=== PATIENT | female | born 1990 | race Caucasian/White ===

== ENCOUNTER 2022-01-06 08:25 | Emergency (ER) | payer MEDICAID, SELFPAY ==
[2022-01-06 09:03] VITALS: BP 120/74; PULSE 100; RESP 16; TEMP 36.6; O2SAT 98; BMI 24.7
--- NOTE | 2022-01-06 09:18 | W.ED.GENADLT ---
HPI - General Adult General: Chief complaint: General Medical Stated complaint: bite on her R foot Time Seen by Provider: 01/06/22 08:29 History of Present Illness: Patient is a 31-year-old female comes to the ED with a insect bite or sting on second toe of right foot. 2 days ago patient felt a sharp sting or bite on second toe of right foot. Pretty soon after bite or sting she had some redness and swelling of her toe. She reports being a little itchy as well. Denies any other symptoms. Associated symptoms: Deny chest pain, dyspnea, headache(s), nausea, rash, palpitations or vomiting Review of Systems Const: Denies: fever(s), chills or fatigue Eyes: Denies: change in vision or eye discomfort ENMT: Denies: throat pain, odynophagia, nasal discharge or nasal congestion Card: Denies: chest pain, palpitations, edema, swelling of feet/ankles, dyspnea on exertion or orthopnea Resp: Denies: dyspnea, productive cough or non-productive cough GI: Denies: abdominal pain, nausea, vomiting, diarrhea, constipation or hematochezia : Denies: flank pain, dysuria or hematuria Musc: Reports: extremity swelling (Second toe on right foot); Denies: neck pain or back pain Skin/Breast: Denies: rash or new lesions Neuro: Denies: headache(s), numbness in extremities or weakness in extremities PFS ED PFSH: Medical History (Updated 01/07/22 @ 07:26 by CHINA Honeycutt) No pertinent family history Surgical History (Updated 01/07/22 @ 07:32 by CHINA Honeycutt) H/O: hysterectomy Physical Exam Const: COMMON NORMALS: no acute distress, patient oriented x3 and alert GENERAL APPEARANCE: cooperative and comfortable HENMT: COMMON NORMALS: normocephalic HEAD & SCALP: normocephalic MOUTH: Normal oral and palatal mucosa present THROAT: posterior oropharynx normal and uvula midline Neck/C-Spine: COMMON NORMALS: supple GENERAL: Yes normal visual inspection Resp: COMMON NORMALS: normal respiratory effort, No retractions, No use of accessory muscles and clear to auscultation bilaterally AUSCULTATION: clear to auscultation bilaterally Cardio: COMMON NORMALS: regular rate, regular rhythm, S1 normal heart sound present, S2 normal heart sound present, No gallops present (Cardio), No clicks present (Cardio), No murmurs present (Cardio) and Peripheral pulses 2+ throughout RATE: regular rate RHYTHM: regular rhythm HEART SOUNDS: S1 normal heart sound present and S2 normal heart sound present PERIPHERAL PULSES: Peripheral pulses 2+ throughout GI: COMMON NORMALS: Normal to inspection, nondistended, normoactive bowel sounds present, Soft to palpation, non-tender and no masses PALPATION: Yes Soft to palpation : COMMON NORMALS: Yes no CVA tenderness BLADDER/KIDNEY EXAM: Yes no CVA tenderness Back/Pelvis: COMMON NORMALS: no CVA tenderness Extremity: NARRATIVE EXTREMITY EXAM: Right foot second toe?small superficial puncture wound on medial aspect of second toe. Some erythema and swelling of toe as well. Findings suggestive of insect sting, but cannot rule out possible developing cellulitis. Neuro: COMMON NORMALS: patient oriented x3 and moves all extremities SENSORIUM/ORIENTATION: Yes alert Skin: GENERAL SKIN EXAM: dry skin Course Vital Signs: Vital signs: Vital Signs Temperature 97.8 F 01/06/22 09:03 Pulse Rate 100 01/06/22 09:03 Respiratory Rate 16 01/06/22 09:03 Blood Pressure 120/74 01/06/22 09:03 Pulse Oximetry 98 01/06/22 09:03 [facility] - General Adult Medical Decision Making Patient is a 31-year-old female comes to the ED with right foot second toe erythema and swelling after insect bite or sting. Patient denies any other symptoms. Vitals are stable. Small superficial puncture wound on medial aspect of second toe. Some erythema and swelling of toe as well. Findings suggestive of insect sting, but cannot rule out possible developing cellulitis. Patient was stable for discharge home. She is diagnosed with a insect bite or sting and was sent home with a prescription for an antibiotic and steroid. Told to follow-up with PCP in the next week for reevaluation. Return to ED precautions given. Patient understood and agreed with plan. Discharge Plan Discharge Patient Disposition: Home Clinical Impression: Insect bite or sting Condition: Stable Prescriptions: New cephalexin 500 mg capsule 500 mg PO Q6H 7 Days Qty: 28 0RF prednisone 20 mg tablet 20 mg PO BID 3 Days Qty: 6 0RF Discharge Orders: Discharge ED (Routine); Ordered 01/06/22 Ordered By: Baldev Levy Discharge Diet: Regular Discharge Activity: Resume usual activity Activity Restrictions/Additional Instructions: Follow-up with medical provider as directed. Take medications as prescribed. Start taking your prednisone prescription tomorrow since she received a steroid shot in the ED today. Return to the ER or your medical provider if condition worsens. Please read and understand discharge instructions. Thank you for choosing [facility] for your healthcare needs today. Please realize this is an emergency room and that we are providing you with a medical screening exam and this may not be complete and all inclusive of all the testing and or work up that you may need to determine your ailment or severity of your illness. It is very important that you follow up as instructed or that you return to the Emergency Department should you have concerns or if your condition changes or worsens in any way. Coding Level of Care Code ED Glass Laminating Operator for Berenice Strauss
== END 2022-01-06 11:41 | disposition home or self-care (01) ==
PROVIDERS: Emergency Provider Physician Assistant
DX: S90.464A Insect bite (nonvenomous), right lesser toe(s), initial encounter (principal); W57.XXXA Bitten or stung by nonvenomous insect and other nonvenomous arthropods, initial encounter
CPT/HCPCS: 96372; 99283; J2930

== ENCOUNTER 2023-01-14 14:29 | Outpatient (CLI) | payer MEDICAID, SELFPAY ==
--- NOTE | 2023-01-14 | XR_ITS ---
WS: [id number] Exam: XR shoulder RT min 2V* [id number] Date/Time of Exam: 01/14/2023 2:53 PM Reason For Exam: PAIN IN RIGHT SHOULDER The projections of the shoulder reveal no fractures, anomalies, soft tissue swelling, or calcificatio ns. There is normal bony alignment. No irregularity of the bony architecture is noted. XR/XR shoulder RT min 2V* [id number] IMPRESSION: Negative right shoulder.
== END 2023-01-14 14:30 | disposition home or self-care (01) ==
LOC: RAD 14:32
PROVIDERS: PCP Family Medicine; Visit Provider Nurse Practitioner Family
DX: M25.511 Pain in right shoulder (principal)
CPT/HCPCS: 73030

== ENCOUNTER → 2023-03-10 08:27 | Outpatient (BNVA) | payer MEDICAID, SELFPAY | PROVIDERS: PCP Family Medicine; Referring Provider Family Medicine; Visit Provider Student in an Organized Health Care Education/Training Program | DX: M75.41 Impingement syndrome of right shoulder | CPT/HCPCS: 73030 ==

== ENCOUNTER 2023-07-23 07:30 | Outpatient (CLI) | payer MEDICAID, SELFPAY ==
--- NOTE | 2023-07-23 07:34 | US_ITS ---
WS: [id number] Complete ABDOMINAL ULTRASOUND HISTORY: NAUSEA COMPARISON: None available. Liver: 15.2 cm in length. Normal size liver and echogenicity. No bile duct dilatation or mass. Portal Vein: Normal hepatopetal flow with monophasic waveform. Gallbladder: Cholecystectomy. CBD: 0.6 cm Pancreas: Normal size and echogenicity. Right kidney: 11.6 cm x 5.0 x 4.1 cm. Cortex: 1.3 cm. Normal size and echogenicity. No hydronephrosis or mass. Left kidney: 9.3 cm x 4.7 cm x 4.3 cm. Cortex: 1.3 cm. Normal size kidney. Exophytic cyst from the inferior pole measures 3.5 x 4.6 x 3.3 cm. Spleen: Normal. Aorta and IVC: Unremarkable abdominal aorta and IVC. Impression: 1. Status post cholecystectomy. 2. No renal obstruction. 3. Simple cyst lower pole LEFT kidney, maximal diameter 4.6 cm.
== END 2023-07-23 07:31 | disposition home or self-care (01) ==
LOC: RAD 07:30
PROVIDERS: PCP Family Medicine; Visit Provider Family Medicine
DX: N28.1 Cyst of kidney, acquired (principal); R11.0 Nausea
CPT/HCPCS: 76700

== ENCOUNTER 2023-08-31 07:43 | Outpatient (CLI) | payer MEDICAID, SELFPAY ==
--- NOTE | 2023-08-31 08:00 | MR_ITS ---
WS: [id number] MRI RIGHT SHOULDER NONCONTRAST TECHNIQUE: Sagittal T2, coronal T1, T2 and proton density imaging. Axial gradient PDE imaging. CLINICAL INFORMATION: right shoulder pain COMPARISON: None. FINDINGS: Mild degenerative arthritis AC joint with mild fluid and edema. Trace subacromial and subdeltoid flui d. Slight subacromial spurring. Supraspinatus is intact. Mild tendinopathy distal supraspinatus. Norm al infraspinatus. Normal teres minor. Normal biceps tendon in the bicipital groove. Glenoid labrum appears grossly intact. Normal bone pati ow signal in the humerus and glenoid. Distal subscapularis appears normal. IMPRESSION: 1. Mild degenerative edema at the AC joint with slight subacromial spurring. Small amount of subacro mial and subdeltoid fluid. 2. Mild tendinopathy distal supraspinatus which appears intact. 3. Rotator cuff is otherwise intact. 4. Normal biceps tendon in the bicipital groove. 5. No other suspicious findings.
== END 2023-08-31 07:44 | disposition home or self-care (01) ==
LOC: RAD 07:43
PROVIDERS: PCP Family Medicine; Visit Provider Physician Assistant
DX: M75.41 Impingement syndrome of right shoulder (principal)
CPT/HCPCS: 73221

== ENCOUNTER 2023-11-24 11:15 | Outpatient (CLI) | payer MEDICAID, SELFPAY ==
--- NOTE | 2023-11-24 11:20 | XRR_ITS ---
PROCEDURE INFORMATION: Exam: XR Cervical Spine Exam date and time: 11/24/2023 11:32 AM Age: 33 years old Clinical indication: Neck pain TECHNIQUE: Imaging protocol: Radiologic exam of the cervical spine. Views: 4 or 5 views. COMPARISON: No relevant prior studies available. FINDINGS: Bones/joints: Normal. No acute fracture. Normal alignment. Normal appearing neural foramina. Soft tissues: Unremarkable. XR/XR cervical spine 4-5V [id number] IMPRESSION: No abnormal findings.
== END 2023-11-24 11:16 | disposition home or self-care (01) ==
LOC: RAD 11:16
PROVIDERS: PCP Family Medicine; Visit Provider Family Medicine
DX: M54.2 Cervicalgia (principal)
CPT/HCPCS: 72050

== ENCOUNTER 2024-02-26 11:39 | Emergency (ER) | payer MEDICAID, SELFPAY ==
[2024-02-26 11:52] VITALS: BP 128/92; PULSE 89; RESP 18; TEMP 36.8; O2SAT 98; BMI 27.4
--- NOTE | 2024-02-26 13:03 | PC.NURSE ---
this nurse assumed pt care at 1303 when pt was brought back to room 2.
[2024-02-26 13:07] VITALS: BP 118/76; PULSE 75; RESP 16; O2SAT 98
--- NOTE | 2024-02-26 13:10 | ED_ITS ---
HPI - Nausea/Vomiting/Diarrhea 2 General: Chief complaint: Nausea/Vomiting/Diarrhea Stated complaint: abd pain, n,v Time Seen by Provider: 02/26/24 12:55 Source: patient Mode of arrival: ambulatory Limitations: no limitations History of Present Illness: Patient is a 33-year-old female presents to ED today with complaint of nausea, vomiting, diarrhea over the past 72 hours. She states she has not had any vomiting today but has already had approximately 5 diarrhea stools. She has not noticed any bloody emesis or bloody stools. She is not running fevers. She states occasionally she will have some abdominal pain. No sick contacts or poor food exposures. Previous abdominal surgeries include a cholecystectomy and appendectomy. She arrives in no acute distress with stable vital signs. Denies urinary symptoms or flank pain. Denies recent antibiotic use. MD elicited complaint: nausea, vomiting and diarrhea Onset (ago): day(s) Associated nausea: Yes Associated abdominal pain: Yes Pain consistency: intermittent Severity: moderate Exacerbating factors: none Relieving factors: none Associated symtoms: Reports fatigue, headache(s) and nausea; Denies chest pain, dizziness, dysuria or malaise Review of Systems 2 Const: Reports: fatigue; Denies: fever(s), chills, body aches or malaise ENMT: Denies: throat pain, odynophagia, nasal discharge, nasal congestion or sinus pain Card: Denies: chest pain Resp: Denies: dyspnea GI: Reports: abdominal pain, nausea, vomiting, diarrhea and GI cramping; Denies: hematemesis, rectal pain, hematochezia or melena : Denies: flank pain, difficulty voiding, dysuria, urinary frequency, urinary urgency or urinary hesitancy Musc: Denies: neck pain, back pain, extremity pain or joint pain Skin/Breast: Denies: rash Neuro: Reports: headache(s); Denies: numbness in extremities, weakness in extremities, sensory changes or dizziness PFSH ED 2 PFSH: Medical History No pertinent family history Surgical History H/O: hysterectomy Physical Exam 2 Const: COMMON NORMALS: no acute distress, average body habitus, patient oriented x3, no limitations, healthy appearing, alert and well nourished G ENERAL APPEARANCE: cooperative ORIENTATION/CONSCIOUSNESS: Yes awake, Yes oriented to person, Yes oriented to place and Yes oriented to time Eye: COMMON NORMALS: no scleral icterus Resp: COMMON NORMALS: normal respiratory effort and clear to auscultation bilaterally AUSCULTATION: clear to auscultation bilaterally Cardio: COMMON NORMALS: regular rate and regular rhythm RATE: regular rate RHYTHM: regular rhythm GI: COMMON NORMALS: Normal to inspection, nondistended, normoactive bowel sounds present, Soft to palpation, No hepatosplenomegaly present and no masses INSPECTION: Yes normal to inspection AUSCULTATION: Yes normoactive bowel sounds PALPATION: Yes Soft to palpation, Yes Tenderness to palpation present (GI) (mild tenderness noted to RLQ, LUQ), No Guarding due to palpation present (GI), No Rigid due to palpation and Yes No hepatosplenomegaly present : COMMON NORMALS: Yes no CVA tenderness BLADDER/KIDNEY EXAM: Yes no CVA tenderness Back/Pelvis: COMMON NORMALS: no CVA tenderness Extremity: GENERAL: Yes normal exam except as noted Neuro: KODY COMA SCALE: document GCS findings [place] coma scale eye opening: Spontaneous [place] coma scale verbal response: Orientated [place] coma scale motor response: Obey commands Kody coma scale total score: 15 COMMON NORMALS: patient oriented x3 SENSORIUM/ORIENTATION: Yes alert, Yes oriented to person, Yes oriented to place and Yes oriented to time Skin: COMMON NORMALS: no rashes or lesions noted GENERAL SKIN EXAM: no rashes or lesions noted Course 2 Vital Signs: Vital signs: Vital Signs Temperature 98.3 F 02/26/24 11:52 Pulse Rate 75 02/26/24 13:07 Respiratory Rate 16 02/26/24 13:07 Blood Pressure 118/76 02/26/24 13:07 Pulse Oximetry 98 02/26/24 13:07 Oxygen Delivery Me thod Room Air 02/26/24 13:07 MDM - Nausea/Vomiting/Diarrhea Medical Decision Making Patient appears in no acute distress. She has not had any vomiting or diarrhea while here. Her vital signs are completely normal. Her blood work here is completely unremarkable. Mild dehydration noted on her UA. She was given a liter of fluids. I do not feel emergent CT imaging is indicated. Abdominal exam was nonsurgical. Recommend conservative therapies over the weekend and follow-up with primary care early next week if symptoms persist. Return to ED precautions given. Medical Records I reviewed the patient's medical records. Lab Data I reviewed the patient's lab results. 02/26/24 13:14 02/26/24 13:14 Laboratory Results WBC 9.67 10^3/uL (3.29-11.43) 02/26/24 13:14 RBC 5.52 10^6/uL (3.85-5.65) 02/26/24 13:14 Hgb 15.60 g/dL (11.27-16.99) 02/26/24 13:14 Hct 47.7 % (36-47) H 02/26/24 13:14 MCV 86.4 fl (85-98) 02/26/24 13:14 MCH 28.3 pg (27-33) 02/26/24 13:14 MCHC 32.7 g/dL (30-55) 02/26/24 13:14 RDW 12.5 % (12.1-15.1) 02/26/24 13:14 Plt Count 288 10^3/cmm (157-399) 02/26/24 13:14 MPV 9.8 fL (7.4-10.4) 02/26/24 13:14 Neut % (Auto) 61.9 % 02/26/24 13:14 Lymph % (Auto) 31.2 % 02/26/24 13:14 [place] % (Auto) 4.8 % 02/26/24 13:14 Eos % (Auto) 1.4 % 02/26/24 13:14 Baso % (Auto) 0.3 % 02/26/24 13:14 Neut # (Auto) 5.98 10^3/uL (1.8-7.7) 02/26/24 13:14 Lymph # (Auto) 3.0 10^3/uL (0.8-4.8) 02/26/24 13:14 [place] # (Auto) 0.5 10^3/uL (0.2-0.9) 02/26/24 13:14 Eos # (Auto) 0.1 10^3/uL (0.0-0.8) 02/26/24 13:14 Baso # (Auto) 0.0 10^3/uL (0.0-0.1) 02/26/24 13:14 Nucleated RBC % (auto) 0 % 02/26/24 13:14 Nucleated RBCs # 0.0 /100WBC 02/26/24 13:14 Sodium 139 mmol/L (136-145) 02/26/24 13:14 Potassium 4.1 mmol/L (3.5-5.1) 02/26/24 13:14 Chloride 103 mmol/L (98-107) 02/26/24 13:14 Carbon Dioxide 23 mmol/L (22-29) 02/26/24 13:14 Anion Gap 17.1 (5-19) 02/26/24 13:14 BUN 12 mg/dL (6-20) 02/26/24 13:14 Creatinine 0.6 mg/dL (0.5-0.9) 02/26/24 13:14 GFR Calculation 114.4 mL/min (90-130) 02/26/24 13:14 Glucose 89 mg/dL (65-115) 02/26/24 13:14 Calculated Osmolality 287 mOsm/kg (285-295) 02/26/24 13:14 Calcium 9.3 mg/dL (8.5-10.5) 02/26/24 13:14 Total Bilirubin 0.6 mg/dL (0.15-1.2) 02/26/24 13:14 AST 17 U/L (0-32) 02/26/24 13:14 ALT 21 U/L (0-33) 02/26/24 13:14 Alkaline Phosphatase 71 U/L (35-105) 02/26/24 13:14 Total Protein 7.0 g/dL (6.6-8.7) 02/26/24 13:14 Albumin 4.7 g/dL (3.5-5.2) 02/26/24 13:14 Globulin 2.3 g/dL (1.3-4.6) 02/26/24 13:14 Lipase 23 U/L (13-60) 02/26/24 13:14 HCG, Qual Negative (Negative) 02/26/24 13:14 Urine Color Yellow (Yellow) 02/26/24 13:57 Urine Appearance Clear (CLEAR) 02/26/24 13:57 Urine pH 5.5 (5-7) 02/26/24 13:57 Ur Specific [place] 1.025 (1.005-1.030) 02/26/24 13:57 Urine Protein Trace (Negative) A 02/26/24 13:57 Urine Glucose (UA) Negative (Normal) 02/26/24 13:57 Urine Ketones 2+ (Negative) H 02/26/24 13:57 Urine Blood Negative (Negative) 02/26/24 13:57 Urine Nitrate Negative (Negative) 02/26/24 13:57 Urine Bilirubin Negative (Negative) 02/26/24 13:57 Urine Urobilinogen 1.0 mg/dL (Negative) 02/26/24 13:57 Ur Leukocyte Esterase Negative (Negative) 02/26/24 13:57 Urine RBC 3-5 /hpf (0-2) 02/26/24 13:57 Urine WBC 0-5 /hpf (0-5) 02/26/24 13:57 Ur Squamous Epith Cells 0-5 /hpf (0-5) 02/26/24 13:57 Amorphous Sediment Not Reportable 02/26/24 13:57 Urine Bacteria None seen /hpf (NONE) 02/26/24 13:57 Hyaline Casts 1.21 /lpf 02/26/24 13:57 No radiology studies performed this visit Discharge Plan Discharge Patient Disposition: Home Clinical Impression: Nausea, vomiting, and diarrhea Condition: Stable Prescriptions: No Action montelukast 10 mg tablet 10 mg PO DAILY cyclobenzaprine 5 mg tablet 5 mg PO TID PRN (Reason: PAIN/MUSCLE SPASMS) Discharge Orders: Discharge ED (Routine); Ordered 02/26/24 Ordered By: Beth Horta Referrals: Floresita Velazquez DO [Primary Care Provider] - Activity Restrictions/Additional Instructions: As we discussed you may do a bland liquid diet and slowly advance as tolerated. You may use your nausea medications that you mentioned you have at home as needed/directed. As we discussed you need to return to the emergency department for worsening vomiting or diarrhea, severe abdominal pain, blood in your vomit or stools, fevers greater than 100.4, generally feeling worse or unwell, or any other concerns you may have. Otherwise you can follow-up with primary care early next week if symptoms are not improving. I hope you begin to feel better soon. Coding Level of Care Code ED Material Control Manager for Berenice Strauss
[2024-02-26 13:21] LABS: Basophils % 0.3 %; Eosinophils # 0.1 10^3/uL (0.0-0.8); Eosinophils % 1.4 %; Hematocrit 47.7 % (36-47); Lymphocytes % 31.2 %; Mean Corpuscular HGB Conc 32.7 g/dL (30-55); Mean Corpuscular Hemoglobin 28.3 pg (27-33); Mean Corpuscular Volume 86.4 fl (85-98); Mean Platelet Volume 9.8 fL (7.4-10.4); Monocytes # 0.5 10^3/uL (0.2-0.9); Monocytes % 4.8 %; Neutrophils # 5.98 10^3/uL (1.8-7.7); Neutrophils % 61.9 %; Nucleated Red Blood Cells % 0 %; Platelet Count 288 10^3/cmm (157-399); Red Blood Count 5.52 10^6/uL (3.85-5.65); Red Cell Distribution Width 12.5 % (12.1-15.1); White Blood Count 9.67 10^3/uL (3.29-11.43)
[2024-02-26] MEDS: sodium chloride 0.9% 1,000 ML 999 ML IV (13:22)
[2024-02-26] MEDS: ondansetron 2 mg/ML SDV 2 mL 4 MG IVP (13:22)
[2024-02-26 13:38] LABS: Alanine Aminotransferase 21 U/L (0-33); Albumin Level 4.7 g/dL (3.5-5.2); Alkaline Phosphatase 71 U/L (35-105); Anion Gap 17.1 (5-19); Aspartate Amino Transferase 17 U/L (0-32); Blood Urea Nitrogen 12 mg/dL (6-20); Calcium 9.3 mg/dL (8.5-10.5); Carbon Dioxide 23 mmol/L (22-29); Chloride 103 mmol/L (98-107); Creatinine Clr Calc Pharmacy 119.4567; Globulin 2.3 g/dL (1.3-4.6); Glomerular Filtration Rate 114.4 mL/min (90-130); Glucose 89 mg/dL (65-115); Lipase 23 U/L (13-60); Osmolality Calculated 287 mOsm/kg (285-295); Potassium 4.1 mmol/L (3.5-5.1); Sodium 139 mmol/L (136-145); Total Bilirubin 0.6 mg/dL (0.15-1.2)
[2024-02-26 13:39] LABS: HCG, Serum Qual Negative (Negative)
[2024-02-26 14:06] LABS: Charge for UA Resulting for Rev
[2024-02-26 14:08] LABS: Bilirubin Urine Negative (Negative); Blood Urine Negative (Negative); Glucose Urine UA Negative (Normal); Ketones Urine 2+ (Negative); Leukocyte Esterase Urine Negative (Negative); Nitrate Urine Negative (Negative); Protein Urine Trace (Negative); Specific Gravity, Urine 1.025 (1.005-1.030); Urine Appearance Clear (CLEAR); Urine Color Yellow (Yellow); pH Urine 5.5 (5-7)
[2024-02-26 14:10] LABS: Bacteria Urine None Seen /hpf; Hyaline Casts Urine 1.21 /lpf; Squamous Epithelial Cell Urine 0-5 /hpf (0-5); WBC Urine 0-5 /hpf (0-5)
[2024-02-26 14:58] VITALS: BP 113/73; PULSE 75; RESP 17; O2SAT 98
[2024-02-26 15:45] LABS: Adenovirus Not Detected (NOT DETECT); Chlamydia Pneumoniae Not Detected (NOT DETECT); Coronavirus 229E,HKU1,NL63,OC4 Not Detected (NOT DETECT); Human Metapneumovirus Not Detected (NOT DETECT); Human Rhinovirus/Enterovirus Not Detected (NOT DETECT); Influenza A Not Detected (NOT DETECT); Influenza A H1 Not Detected (NOT DETECT); Influenza A H1-2009 Not Detected (NOT DETECT); Influenza A H3 Not Detected (NOT DETECT); Influenza B Not Detected (NOT DETECT); Mycoplasma Pneumoniae Not Detected (NOT DETECT); Parainfluenza Virus Type 1 Not Detected (NOT DETECT); Parainfluenza Virus Type 2 Not Detected (NOT DETECT); Parainfluenza Virus Type 3 Not Detected (NOT DETECT); Parainfluenza Virus Type 4 Not Detected (NOT DETECT); Respiratory Syncytial Virus A Not Detected (NOT DETECT); Respiratory Syncytial Virus B Not Detected (NOT DETECT); SARS-COV-2 Not Detected (NOT DETECT)
== END 2024-02-26 15:00 | disposition home or self-care (01) ==
PROVIDERS: Emergency Provider Physician Assistant; PCP Family Medicine
DX: R11.2 Nausea with vomiting, unspecified (principal); R19.7 Diarrhea, unspecified; E86.0 Dehydration
CPT/HCPCS: 80053; 81003; 81015; 83690; 84703; 85025; 87635; 96374; 99284; J2405; J7030

== ENCOUNTER 2024-04-13 09:52 | Day surgery (SDC) | payer MEDICAID, SELFPAY ==
[2024-04-13] VITALS (12 sets, daily range): BP systolic 106–125; BP diastolic 67–90; PULSE 65–98; RESP 14–18; TEMP 36.1–36.8; O2SAT 93–100; BMI 27.4
[2024-04-13] MEDS: sodium chloride 0.9% 1,000 ML 30 ML IV (11:04)
[2024-04-13] MEDS: scopolamine 1.5 Patch 1 PATCH TRANSDERMA (11:04)
[2024-04-13] MEDS: acetaminophen 1,000 MG/100 ML PIGGYBACK 400 MG IV (11:05)
[2024-04-13] MEDS: ketorolac 30 mg/mL INJ IVP (11:05)
--- NOTE | 2024-04-13 11:33 | P.ANESASSM_ITS ---
Pre-Anesthetic Assessment Height/Weight: Height 1.57 m Weight 68.039 kg Temp Pulse Resp BP Pulse Ox O2 Del Method 98.3 F 79 16 115/76 97 Room Air 04/13/24 10:20 04/13/24 10:20 04/13/24 10:20 04/13/24 10:20 04/13/24 10:20 04/13/24 10:28 Operation Date: 04/13/24 13:15 Proposed Procedures p Shoulder Arthroscopy(Right) - Han Lancaster, DO s Subacromial Decompression(Right) - Han Lancaster, DO s rotator cuff debridement(Right) - Han Cam, DO Familial anesthetic complications: None Was Beta Iveth taken within 24 hours: N/A Was Clonidine taken within 24 hours: N/A Last intake: Intake Last Liquid Date 04/12/24 Last Liquid Time 22:00 Last Solid Date 04/12/24 Last Solid Time 21:00 Social Tobacco and No alcohol Exam alert, oriented x 3, clear to auscultation bilaterally and regular rate & rhythm Airway Mallampati: Class I Dentition: false Pulmonary Asthma Anesthetic Plan ASA status: 2 Anesthesia: General and Regional (specify below) Risk of > 500 ml blood loss (7ml/kg in children): No Medications/Allergies Home Medications Medication Instructions Recorded Confirmed Last Taken Type montelukast 10 mg tablet 10 mg PO DAILY 02/26/24 04/12/24 03/29/24 History hydrocodone 5 mg-acetaminophen 325 1 tab PO Q6H PRN pain 5 days #20 04/13/24 Unknown Rx mg tablet tabs Allergies Allergy/AdvReac Type Severity Reaction Status Date / Time No Known Allergies Allergy Verified 03/01/24 15:30 Current Medications Generic Name Dose Route Start Last Admin Trade Name Freq PRN Reason Stop Dose Admin Sodium Chloride 1,000 mls @ 30 mls/hr 04/13/24 10:00 04/13/24 11:04 Sodium Chloride 0.9% IV 04/14/24 09:59 30 mls/hr .Q24H NICA Administration PFSH Anesthesia Medical History (Updated 03/05/24 @ 00:01 by LILIAM Swanson) No pertinent family history Surgical History (Updated 04/13/24 @ 10:12 by Uday Chua RN) H/O: hysterectomy Social History Smoking and tobacco/nicotine status: current every day tobacco/nicotine user Data Anesthesia Cardiac Studies: No Data to Display
--- NOTE | 2024-04-13 12:15 | W.PM.OPSFHP ---
Same Day Surgery H&P Indication for Procedure/HPI DATE OF PROCEDURE: April 13, 2024 CHIEF COMPLAINT/INDICATIONFOR SURGICAL PROCEDURE: Right shoulder subacromial impingement, rotator cuff tendinitis PREOP DIAGNOSIS: Right shoulder subacromial impingement, rotator cuff tendinitis PLANNED PROCEDURE: Operation Date: 04/13/24 13:15 Proposed Procedures p Shoulder Arthroscopy(Right) - Han Levy, s Subacromial Decompression(Right) - Han Levy, DO s rotator cuff debridement(Right) - Han Levy, DO Medications/Allergies* Home Medications Medication Instructions Recorded Confirmed Type montelukast 10 mg tablet 10 mg PO DAILY 02/26/24 04/12/24 History Allergies/Adverse Reactions Allergy/AdvReac Type Severity Reaction Status Date / Time No Known Allergies Allergy Verified 03/01/24 15:30 Current Medications: Generic Name Dose Route Start Last Admin Trade Name Freq PRN Reason Stop Dose Admin Sodium Chloride 1,000 mls @ 30 mls/hr 04/13/24 10:00 04/13/24 11:04 Sodium Chloride 0.9% IV 04/14/24 09:59 30 mls/hr .Q24H NICA Administration Pertinent History/Comorbid Conditions* Medical History (Updated 03/05/24 @ 00:01 by LILIAM Swanson) No pertinent family history Surgical History (Updated 01/07/22 @ 07:32 by CHINA Honeycutt) H/O: hysterectomy Social History Smoking and tobacco/nicotine status: current every day tobacco/nicotine user Pertinent Exam Findings alert, oriented x 3, operative site marked and procedure specific exam findings Please refer to detailed orthopedic examination on 03/01/2024 listed below: Right shoulder There is some tenderness over the trapezius muscle on the right, minimal AC joint tenderness and biceps tendon. Exam of both upper extremities shows no pain on range of motion of the elbows wrists or hands. There is full range of motion of these joints. the right shoulder shows pain on range of motion, primarily abduction as well as forward flexion. There is pain on abduction against resistance, pain over the leading edge of the acromion. positive O'briens test. There is full internal and external rotation with 5/5 strength noted with the elbows at the side. Decreased active range of motion, but full passive ROM 180 Positive Jung' impingement Pain with Jobes 5/5 Recommendations Surgery/Procedure today Other Plans: Plan for surgery today for right shoulder diagnostic and surgical arthroscopy with subacromial decompression and possible rotator cuff debridement. Patient understands the ins and outs of procedure the risk benefits complication alternatives of surgery and through shared decision-making elects to proceed with surgical intervention. All questions have been answered at this time. Coding Level of Care Code Acute Code for Chg Fwd
[2024-04-13] MEDS: midazolam 1 mg/mL INJ 2 mL 2 MG IVP (12:34)
--- NOTE | 2024-04-13 12:34 | SUR.PREOP ---
Addendum entered by Uday Chua RN 04/13/24 12:39: PT TOLERATED PROCEDURE WELL. Original Note: 12:20 PLACED ON MONITOR AND O2 . RIGHT INTERSCALENE NERVE BLOCK PERFORMED BY DOCTOR Gray , USING 20ml OF 0.5% ROPIVACAINE. p
--- NOTE | 2024-04-13 12:36 | ANES.PROC ---
Anesthesia Procedures Procedure/Date: 04/13/24 Nerve Block ^: Nerve Block 1: Main Anesthesia: general anesthesia Time Out Performed: Yes Consent: requested by attending/covering physician, from patient, from other, risks and benefits reviewed and patient agrees to proceed Nerve block location: interscalene (R) Anesthesia monitors applied: pulse oximetry, EKG, BP cuff and oxygen Nerve block position: semi sitting Anesthetic Used: ropivicaine 0.5% (20 ml) and with decadron (4 mg) Ultrasound used to: recognize landmarks, visualize and ID brachial plexus, in supraclavicular region and visualize and ID interscalene groove Nerve Stimulator Used?: No Interscalene/Femoral BLK: 2 stimuplex 22 g needle used for position and inplane approach, visualize local anesthetic spread and no vascular puncture identified Injection: neg aspiration of heme Patient Tolerated Procedure: well Complications: none
[2024-04-13] MEDS: ceFAZolin 2,000 MG in sodium chloride 0.9% (plus) 50 ML 100 MG IV (14:09)
[2024-04-13] MEDS: EPINEPHrine 1 mg/mL INJ 2 MG XX (14:48)
--- NOTE | 2024-04-13 15:15 | P.BOP_ITS ---
Date of Procedure: 04/13/2024 Surgeon: Han Levy DO Casting Machine Service Operator(s): None Procedure(s) performed: Right shoulder diagnostic and surgical arthroscopy with subacromial decompression (bursectomy/acromioplasty) Right shoulder diagnostic and surgical arthroscopy with rotator cuff debridement Right shoulder diagnostic and surgical arthroscopy with labral debridement Findings of the procedure(s): Patient underwent right shoulder diagnostic and surgical arthroscopy Toller procedure well without issues or complications. She was found to have significant bursitis and subacromial impingement and had this addressed as stated procedure above. The undersurface of her rotator cuff did have some subtle fraying and as a result just underwent gentle debridement as this articular sided fraying/tearing was only less than 10% of the rotator cuff. Patient on the posterior and superior aspect of the labrum had some subtle fraying but no evidence of labral instability or tear this was just gently debrided without issues or complications. Patient tolerated procedure well without issues or complications patient was then taken to PACU in stable condition. Estimated blood loss: 5 mL Specimen(s) removed: None Post-operative diagnosis: Right shoulder subacromial impingement, partial articular sided rotator cuff tearing less than 10%, partial fraying of the posterior superior aspect of the labrum.
--- NOTE | 2024-04-13 15:17 | P.OP_ITS ---
Operative Report Date of procedure: April 13, 2024 Surgeon: Han Levy DO Procedure: Preoperative diagnosis: Right shoulder subacromial impingement, rotator cuff tendinitis Post-op diagnosis: Right shoulder subacromial impingement, partial articular sided rotator cuff tearing less than 10%, partial fraying of the posterior superior aspect of the labrum. Procedure done: Right shoulder diagnostic and surgical arthroscopy with subacromial decompression (bursectomy/acromioplasty) Right shoulder diagnostic and surgical arthroscopy with rotator cuff debridement Right shoulder diagnostic and surgical arthroscopy with labral debridement Surgeon: Han Levy DO Estimated blood loss: 5mL IV fluids: See anesthesia record Implants: None Complications: None Condition: stable Disposition: same day Brief History: Patient been seen and worked up in the outpatient setting for right?shoulder pain.? Pt had an MRI which showed findings below.? Patient's failed conservative treatment with continued pain.? We talked about treatment options far as nonoperative and operative intervention..? We talked about risk benefits complication alternatives surgical nonsurgical treatment options.? Understanding risk of surgery pt agrees to proceed with surgical intervention.? All questions have been answered at this time.? Patient elects proceed with surgery and consent obtained for right shoulder diagnostic and surgical arthroscopy with subacromial decompression and possible rotator cuff debridement IMPRESSION: 1. Mild degenerative edema at the AC joint with slight subacromial spurring. Small amount of subacromial and subdeltoid fluid. 2. Mild tendinopathy distal supraspinatus which appears intact. 3. Rotator cuff is otherwise intact. 4. Normal biceps tendon in the bicipital groove. 5. No other suspicious findings. Procedure: Patient seen evaluated in the preoperative holding area.? Consent reviewed and signed with patient.? Once again reviewed patient's MRI results as well as? planned surgical intervention.? Correct extremity marked.? Patient seen evaluated by anesthesia department received regional anesthesia.? Once ready for surgery was taken back to the operative suite.? Patient then subsequently underwent anesthesia per the anesthesia department was transported onto the OR table.? Patient was then placed into a lateral decubitus position with a beanbag and was appropriately secured to the bed.? All bony prominences well-padded.? Patient then had the right upper extremity was then prepped and draped in standard orthopedic fashion.? Patient received appropriate preoperative antibiotics.? Final timeout performed. The right upper extremity was then held in hanging from traction utilizing sterile technique.? Next started with standard diagnostic and surgical arthroscopy with posterior portal position introduced arthroscope into the glenohumeral joint.? Visualized the glenohumeral joint I then introduced a spinal needle within the?rotator cuff interval to confirm appropriate anterior portal placement.? Once this was confirmed I then made my small incision and then introduced my arthroscopic shaver into the glenohumeral joint.? After thorough debridement diagnostic and surgical arthroscopy was then performed of the shoulder. Patient's bicep labral anchor was intact there is no evidence of bicep tendon tearing this was subsequent left alone the anterior labrum was intact as well as the inferior labrum. Next I evaluated the subscapularis tendon which was intact and no evidence of tear. ?Next there was tearing of the superficial edges of the posterior labrum I subsequently underwent a gentle debridement and thermal wand to perform a posterior labral debridement there was no evidence of unstable labral tearing.? Patient was found to have pristine articular cartilage no evidence of chondromalacia. The axillary recess was then inspected and found to have no evidence of loose bodies. I then looked superiorly and patient had a small roughly 10% partial tearing on the articular side of the undersurface of the supraspinatus rotator cuff tendon there was a negative escape bubble sign I gently utilized the arthroscopic shaver to perform a gentle debridement of the undersurface of the rotator cuff. There is no evidence of full-thickness rotator cuff tear as a result no evidence or need for any rotator cuff repairs. This completed my work within the glenohumeral joint all fluid was suctioned free of the joint.? ?Next I reintroduced the arthroscope posteriorly.? And went to the subacromial space.? I established my lateral working portal at the site of which my spinal needle was marking of the?rotator cuff tear.? Thermal wand was then introduced laterally and then I subsequently performed extensive bursectomy of the subacromial space.? Patient had a large anterior bone spur.? I then introduced the arthroscopic shaver laterally while continuing to view posteriorly.? I then performed an acromioplasty to complete my subacromial decompression. After the subacromial decompression was performed I then inspected the rotator cuff the rotator cuff was pristine and intact with no evidence of a bursal sided tearing this was taken through range of motion and thoroughly inspected and no evidence of rotator cuff tear was noted. This completed the procedure. ?Next I then introduced the arthroscopic shaver posteriorly to complete my subac romial decompression appropriate complaining all the way up to the lateral edge of the acromion.? This completed the surgery.? All fluid was suctioned from the?shoulder.? All instruments were removed.? The lateral incision was then closed with nylon stitches.? As well as the portal sites closed with portal nylon stitches.? Xeroform 4 x 4's ABD and tape was then applied to the right?shoulder and was placed into a?simple sling. Patient was then awakened from anesthesia and then taken back to PACU in stable condition.? Patient tolerated procedure without any issues. Disposition: Patient taken back in stable condition recovering well.? Dressings on in place clean dry and intact.? Will be nonweightbearing to the right upper extremity.? Follow?subacromial decompression protocol. patient to follow-up with me in the office in 2 weeks.? Patient will receive appropriate discharge instruction as well as pain medication postoperatively.? All questions answered.? We will contact the office for any questions or concerns.
--- NOTE | 2024-04-13 16:20 | SUR.PHASEII ---
16:20 PT SHIVERING. WARM INDIRECT AIR AND BLANKETS. GOOD CAP REFILL SENSATION AND ROM RIGHT HAND FINGERS PRESENT.
--- NOTE | 2024-04-13 17:10 | ANE.PACU2 ---
Inpatient post-anesthesia follow up: Airway intact: Yes Vital signs: Temperature 97.6 F Pulse Rate 75 Respiratory Rate 16 Blood Pressure 117/68 Pulse Oximetry 98 Oxygen Delivery Me thod Room Air Oxygen Flow Rate Fraction of Inspir ed Oxygen Hydration adequate: Yes Nausea and vomiting: No Pain level: 1 Mental status: Baseline
== END 2024-04-13 17:10 | disposition home or self-care (01) ==
PROVIDERS: PCP Family Medicine; Visit Provider Student in an Organized Health Care Education/Training Program
PROC: (CPT 29805; principal; 2024-04-13 13:15)
PROC: (CPT 29826; 2024-04-13 13:15)
PROC: (CPT 29823; 2024-04-13 13:15)
PROC: (CPT 29823; 2024-04-13 13:15)
DX: M25.811 Other specified joint disorders, right shoulder (principal); M75.101 Unspecified rotator cuff tear or rupture of right shoulder, not specified as traumatic; J45.909 Unspecified asthma, uncomplicated; F17.200 Nicotine dependence, unspecified, uncomplicated
CPT/HCPCS: 29823; 29826; J0131; J0171; J0690; J1100; J1885; J2250; J2704; J2795; J3010; J3490; J7030

== ENCOUNTER 2024-09-05 09:32 | Outpatient (CLI) | payer MEDICAID, SELFPAY ==
--- NOTE | 2024-09-05 09:46 | XR_ITS ---
WS: [id number] Exam: XR abdomen 1V* [id number] Date/Time of Exam: 09/05/2024 9:59 AM Reason For Exam: ABDOMINAL BLOATING, DIARRHEA, UNSPECIFIED No bowel obstruction or pneumoperitoneum. No sign of organ enlargement. Bony structures are intact. Multiple pelvic calcifications noted most likely phleboliths. Signs of prior cholecystectomy. XR/XR abdomen 1V* [id number] IMPRESSION: 1. No acute abdominal process.
[2024-09-05 12:13] LABS: Adenovirus Not Detected (NOT DETECT); Chlamydia Pneumoniae Not Detected (NOT DETECT); Coronavirus 229E,HKU1,NL63,OC4 Not Detected (NOT DETECT); Human Metapneumovirus Not Detected (NOT DETECT); Human Rhinovirus/Enterovirus Not Detected (NOT DETECT); Influenza A Not Detected (NOT DETECT); Influenza A H1 Not Detected (NOT DETECT); Influenza A H1-2009 Not Detected (NOT DETECT); Influenza A H3 Not Detected (NOT DETECT); Influenza B Not Detected (NOT DETECT); Mycoplasma Pneumoniae Not Detected (NOT DETECT); Parainfluenza Virus Type 1 Not Detected (NOT DETECT); Parainfluenza Virus Type 2 Not Detected (NOT DETECT); Parainfluenza Virus Type 3 Not Detected (NOT DETECT); Parainfluenza Virus Type 4 Not Detected (NOT DETECT); Respiratory Syncytial Virus A Not Detected (NOT DETECT); Respiratory Syncytial Virus B Not Detected (NOT DETECT); SARS-COV-2 Not Detected (NOT DETECT)
== END 2024-09-05 09:33 | disposition home or self-care (01) ==
LOC: LAB 09:41
PROVIDERS: PCP Family Medicine; Visit Provider Nurse Practitioner Family
DX: R14.0 Abdominal distension (gaseous) (principal); R19.7 Diarrhea, unspecified; J06.9 Acute upper respiratory infection, unspecified; R93.89 Abnormal findings on diagnostic imaging of other specified body structures; Z90.49 Acquired absence of other specified parts of digestive tract
CPT/HCPCS: 74018; 87486; 87581; 87633

== ENCOUNTER 2024-10-14 10:22 | Outpatient (CLI) | payer MEDICAID, SELFPAY ==
--- NOTE | 2024-10-14 10:24 | US_ITS ---
WS: [id number] Complete ABDOMINAL ULTRASOUND HISTORY: ABDOMINAL BLOATING COMPARISON: 07/23/2023 Liver: 17.0 cm in length. Liver is top normal size to slightly enlarged. No intrahepatic mass or biliary dilatation. Portal Vein: Normal hepatopetal flow with monophasic waveform. Gallbladder: Prior cholecystectomy. CBD: 0.3 cm Pancreas: Normal size and echogenicity. Right kidney: 11.7 cm x 4.8 x 3.7 cm. Cortex:1.0 cm. Normal size and echogenicity. No hydronephrosis or mass. Left kidney: 11.9 cm x 4.2 cm x 4.8 cm. Cortex: 1.3 cm. Normal size kidney with no hydronephrosis. Low-attenuation mass from the lower pole the LEFT kidney measures 3.2 x 3.1 x 3.5 cm. There are low-level echoes within the mass but there is also through transmission. This mass was noted on a prior ultrasound and decreased in size. Favor this is probably a complex cyst. Spleen: 11.5 cm. Normal size and echogenicity. Aorta and IVC: Unremarkable abdominal aorta and IVC. US/US abdomen complete* [id number] Impression: 1. Prior cholecystectomy. 2. No intrahepatic duct dilatation. 3. Liver is measuring top normal to slightly enlarged in size. 4. Hypoechoic mass lower pole LEFT kidney as decreased in size since 07/23/2023. Consistent with a complex cyst.
== END 2024-10-14 10:23 | disposition home or self-care (01) ==
PROVIDERS: PCP Family Medicine; Visit Provider Family Medicine
DX: R14.0 Abdominal distension (gaseous) (principal); Z90.49 Acquired absence of other specified parts of digestive tract; R93.2 Abnormal findings on diagnostic imaging of liver and biliary tract; N28.89 Other specified disorders of kidney and ureter
CPT/HCPCS: 76700

== ENCOUNTER 2024-10-28 14:00 | Outpatient (CLI) | payer MEDICAID, SELFPAY ==
--- NOTE | 2024-10-28 14:05 | CTR_ITS ---
PROCEDURE INFORMATION: Exam: CT Abdomen And Pelvis With Contrast Exam date and time: 10/28/2024 2:48 PM Age: 34 years old Clinical indication: Bloating and constipation; Additional info: Abdominal bloating/lower abdominal pain TECHNIQUE: Imaging protocol: Computed tomography of the abdomen and pelvis with contrast. Axial, coronal and sagittal reformatted images were created and reviewed. Radiation optimization: All CT scans at this facility use at least one of these dose optimization techniques: automated exposure control; mA and/or kV adjustment per patient size (includes targeted exams where dose is matched to clinical indication); or iterative reconstruction. Contrast material: OMNI 350; Contrast volume: 100 ml; Contrast route: INTRAVENOUS (IV); COMPARISON: CR XR abdomen 1V* [id number] 09/05/2024 10:03 AM RADIATION DOSE METRICS: Total DLP (mGy-cm): 371.43 FINDINGS: Liver: Mild hepatomegaly. 5 mm low-density lesion in the right hepatic lobe, too small to characterize. Gallbladder and biliary ducts: Status post cholecystectomy. No biliary ductal dilatation. Pancreas: Unremarkable. Spleen: 5 mm low-density splenic lesion, too small to characterize. Adrenal glands: Normal. No mass. Kidneys and ureters: Left renal cysts, measuring up to 3.8 cm (no follow-up is indicated based on the imaging appearance). No radiodense calculi. No hydronephrosis. Stomach and bowel: No bowel wall thickening. No obstruction. No pneumatosis. Appendix: Appendix not identified with certainty but no right lower quadrant inflammatory change to suggest acute appendicitis. Intraperitoneal space: No free fluid. No organized fluid collection. No free air. Vasculature: Unremarkable. No aneurysm. Lymph nodes: No pathologically enlarged lymph nodes. Urinary bladder: Unremarkable as visualized. Reproductive: Status post hysterectomy. Bones/joints: No acute osseous abnormality. Mild degenerative changes. Soft tissues: Unremarkable. CT/CT abdomen pelvis w con* [id number]: 1[address] No CT evidence of acute intra-abdominal or pelvic pathology. 2. Additional findings, as above. COMMENTS: Consistent with the [employer]'s Incidental Findings Committee white paper (J Am Maria Antonia Radiol 2018): Any incidental renal lesion less than 1 cm or classified as too small to characterize, or any incidental cystic renal lesion characterized as simple-appearing, is likely benign. No follow-up imaging is recommended for these lesions per consensus recommendations based on imaging criteria.
[2024-10-28] MEDS: iohexol 350 mg/mL 500 mL Btl (per mL) PO (14:55)
[2024-10-28] MEDS: iohexol 350 mg/mL 500 mL Btl (per mL) IV (14:55)
== END 2024-10-28 14:01 | disposition home or self-care (01) ==
PROVIDERS: PCP Family Medicine; Visit Provider Family Medicine
DX: R10.30 Lower abdominal pain, unspecified (principal); R16.0 Hepatomegaly, not elsewhere classified; R93.2 Abnormal findings on diagnostic imaging of liver and biliary tract; Z90.49 Acquired absence of other specified parts of digestive tract; D73.89 Other diseases of spleen; N28.1 Cyst of kidney, acquired; Z90.710 Acquired absence of both cervix and uterus; M47.9 Spondylosis, unspecified
CPT/HCPCS: 74177

== ENCOUNTER 2024-11-07 15:30 | Outpatient (CLI) | payer MEDICAID, SELFPAY ==
--- NOTE | 2024-11-07 15:34 | XR_ITS ---
WS: [id number] Exam: XR hip LT 2-3V wo/w pel* [id number] Date/Time of Exam: 11/07/2024 3:41 PM Reason For Exam: LEFT HIP PAIN No fracture. The joint spaces preserved. Normal soft tissues. XR/XR hip LT 2-3V wo/w pel* [id number] IMPRESSION: 1. Negative LEFT hip.
== END 2024-11-07 15:31 | disposition home or self-care (01) ==
PROVIDERS: PCP Family Medicine; Visit Provider Family Medicine
DX: M25.552 Pain in left hip (principal)
CPT/HCPCS: 73502

== ENCOUNTER → 2024-12-18 11:42 | Outpatient (BNVA) | payer MEDICAID, SELFPAY | PROVIDERS: PCP Family Medicine; Visit Provider Nurse Practitioner | DX: K13.0 Diseases of lips (principal) | CPT/HCPCS: 87070 ==

== ENCOUNTER 2024-12-19 14:56 | Emergency (ER) | payer MEDICAID, SELFPAY ==
[2024-12-19 15:17] VITALS: BP 120/7; PULSE 89; RESP 16; TEMP 36.9; O2SAT 99; BMI 27.4
--- NOTE | 2024-12-19 16:03 | ED_ITS ---
HPI - Skin/Abscess/Foreign Bdy General: Chief complaint: Skin/Abscess/Foreign Body Stated complaint: swollen lip sent from dr Velazquez Time Seen by Provider: 12/19/24 15:14 Source: patient Mode of arrival: ambulatory Limitations: no limitations History of Present Illness: Patient is a 34-year-old female presents to ED today for evaluation of a lip abscess. Patient states she was initially seen at a walk-in clinic on 12/16 and placed on antibiotics. She was seen yesterday and had the abscess drained. It was not packed. Cultures were reportedly obtained. She states her antibiotics were adjusted and is now taking 2 tablets twice daily of Bactrim DS. She apparently saw her primary care provider today who recommended she come to the emergency department for possible CT imaging of her neck as she had some swelling/possible reactive lymphadenopathy. Patient is not having any systemic symptoms. No history of HSV. MD complaint: abscess/boil Onset (ago): day(s) Tetanus up to date: yes Location: face (lip) Severity: moderate Pain Consistency: constant Relieving factors: none Exacerbating factors: none Context: none Associated symptoms: Reports no associated symptoms; Deny chills, fever(s), nausea or vomiting Treatments prior to arrival: antibiotic Related Data Home Medications ?Medication ?Instructions ?Recorded ?Confirmed montelukast 10 mg tablet 10 mg PO DAILY 02/26/2408/13 ibuprofen 200 mg capsule 200 mg PO Q6H PRN 04/28/24 0 12/18/24 Previous Rx's ?Medication ?Instructions ?Recorded mupirocin 2 % topical ointment 1 applic topical TID 7 days #15 12/18/24 (Centany) grams sulfamethoxazole 800 2 tab PO BID 10 days #40 tab s 12/18/24 mg-trimethoprim 160 mg tablet (Bactrim DS) tramadol 50 mg tablet 50 mg PO Q6H PRN pain #8 tab s 12/19/24 Allergies Allergy/AdvReac Type Severity Reaction Status Date / Time No Known Allergies Allergy Verified 12/18/24 10:53 Review of Systems Const: Denies: fever(s), chills, body aches, fatigue or malaise ENMT: Reports: other (lip abscess) GI: Denies: nausea or vomiting Musc: Denies: neck pain Neuro: Denies: headache(s) PFSH ED PFSH: Medical History No pertinent family history Surgical History H/O: hysterectomy Social History Smoking and tobacco/nicotine status: current every day tobacco/nicotine user Physical Exam Const: COMMON NORMALS: no acute distress, average body habitus, no limitations, healthy appearing, alert and well nourished HENMT: COMMON NORMALS: Normal external nose present FACE & SINUS: normal facial exam NOSE: Normal external nose present MOUTH: Normal oral and palatal mucosa present, tongue normal, Normal salivary glands and ducts present and other (fluctuant L sided lower lip abscess) TEETH & GINGIVA: Yes fair dentition and Yes other (No gingival swelling or fluctuance) THROAT: posterior oropharynx normal and tonsils normal Eye: GENERAL EYE: appearance normal, both eyes and all related structures Neck/C-Spine: GENERAL: Yes trachea midline, No anterior neck swelling, Yes lymphadenopathy, No tender and No submandibular swelling CERVICAL SPINE: Yes cervical ROM normal Resp: COMMON NORMALS: normal respiratory effort and clear to auscultation bilaterally AUSCULTATION: clear to auscultation bilaterally Cardio: COMMON NORMALS: regular rate and regular rhythm RATE: regular rate RHYTHM: regular rhythm Neuro: SENSORIUM/ORIENTATION: Yes alert Procedures Abscess I/D Site: lip Side (if applicable): left Local Anesthetic: lidocaine 2% Amount of anesthesia used (mL): 0.5 Technique: incised with #11 blade Amount of fluid expressed (mL): 2.0 Packing used?: plain Course Vital Signs: Vital signs: Vital Signs Temperature 98.4 F 12/19/24 15:17 Pulse Rate 89 12/19/24 15:17 Respiratory Rate 16 12/19/24 15:17 Blood Pressure 120/7 12/19/24 15:17 Pulse Oximetry 99 12/19/24 15:17 Oxygen Delivery Me thod Room Air 12/19/24 15:17 MDM - Skin/Abscess/Foreign Bdy Medicial Decision Making Abscess fluctuant today. Repeat incision and drainage was performed with packing. Purulent material expressed. Wound culture obtained on last I&D. Will refer to ENT in case antibiotics and I&D do not provide care. Recommend she continue current dose of Bactrim DS. Recommend she have repeat evaluation in approximately 72 hours for packing removal/repack if needed. Return to ED precautions discussed. Patient does have some mild lymphadenopathy in her neck. I do not have any suspicion for any spread or deep space infection. This would be an unlikely route of spread given an isolated left lip abscess. Medical Records I reviewed the patient's medical records. No radiology studies performed this visit Discharge Plan Discharge Patient Disposition: Home Clinical Impression: Lip abscess Condition: Stable Prescriptions: New tramadol 50 mg tablet 50 mg PO Q6H PRN (Reason: pain) Qty: 8 0RF No Action sulfamethoxazole-trimethoprim [Bactrim DS] 800-160 mg tablet 2 tab PO BID 10 Days Qty: 40 0RF mupirocin [Centany] 2 % ointment 1 applic topical TID 7 Days Qty: 15 0RF ibuprofen 200 mg capsule 200 mg PO Q6H PRN montelukast 10 mg tablet 10 mg PO DAILY Discharge Orders: Discharge ED (Routine); Ordered 12/19/24 Ordered By: Beth Horta Referrals: Floresita Velazquez DO [Primary Care Provider, [facility]] Patient Instructions: Abscess Incision and Drainage (DC) Activity Restrictions/Additional Instructions: As we discussed, continue your current antibiotic regimen at 2 tablets twice a day (total of 4 tablets daily) of your Bactrim DS. Your packing needs to stay in approximately 72 hours. At that point you need to arrange repeat medical evaluation for packing removal and possible repacking. You may return to the emergency department sooner for any worsening of symptoms. Print Language: Luxembourgish Coding Level of Care Code ED Accountant Machine Processing for Berenice Strauss
--- NOTE | 2024-12-21 07:19 | DCPLANNER ---
faxed ent packet to dr. beckwith
== END 2024-12-19 18:23 | disposition home or self-care (01) ==
PROVIDERS: Emergency Provider Physician Assistant; PCP Family Medicine
DX: K13.0 Diseases of lips (principal); Z72.0 Tobacco use
CPT/HCPCS: 10060; 99283

== ENCOUNTER 2024-12-21 13:01 | Emergency (ER) | payer MEDICAID, SELFPAY ==
[2024-12-21 13:13] VITALS: BP 144/77; PULSE 116; RESP 16; TEMP 36.9; O2SAT 97; BMI 27.4
[2024-12-21 14:07] LABS: Basophils # 0.1 10^3/uL (0.0-0.1); Basophils % 0.5 %; Eosinophils # 0.2 10^3/uL (0.0-0.8); Hematocrit 48.1 % (36-47); Lymphocytes # 1.9 10^3/uL (0.8-4.8); Mean Corpuscular HGB Conc 32.6 g/dL (30-55); Mean Corpuscular Hemoglobin 28.6 pg (27-33); Mean Corpuscular Volume 87.8 fl (85-98); Mean Platelet Volume 9.3 fL (7.4-10.4); Monocytes # 0.7 10^3/uL (0.2-0.9); Neutrophils # 7.48 10^3/uL (1.8-7.7); Neutrophils % 71.9 %; Nucleated Red Blood Cells % 0 %; Platelet Count 313 10^3/cmm (157-399); Red Blood Count 5.48 10^6/uL (3.85-5.65); Red Cell Distribution Width 12.5 % (12.1-15.1)
[2024-12-21 14:24] LABS: Alanine Aminotransferase 17 U/L (0-33); Albumin Level 4.4 g/dL (3.5-5.2); Alkaline Phosphatase 93 U/L (35-105); Anion Gap 22.3 (5-19); Aspartate Amino Transferase 16 U/L (0-32); Blood Urea Nitrogen 14 mg/dL (6-20); Calcium 9.3 mg/dL (8.5-10.5); Carbon Dioxide 20 mmol/L (22-29); Chloride 99 mmol/L (98-107); Creatinine Clr Calc Pharmacy 101.4255; Globulin 3.4 g/dL (1.3-4.6); Glomerular Filtration Rate 95.2 mL/min (90-130); Glucose 78 mg/dL (65-115); Lipase 21 U/L (13-60); Osmolality Calculated 283 mOsm/kg (285-295); Potassium 4.3 mmol/L (3.5-5.1); Sodium 137 mmol/L (136-145); Total Bilirubin 0.2 mg/dL (0.15-1.2); Total Protein 7.8 g/dL (6.6-8.7)
[2024-12-21 14:27] LABS: HCG, Serum Qual Negative (Negative)
--- NOTE | 2024-12-21 15:52 | ED_ITS ---
HPI - Nausea/Vomiting/Diarrhea 2 General: Chief complaint: Nausea/Vomiting/Diarrhea Stated complaint: vomitting Time Seen by Provider: 12/21/24 14:24 Source: patient Mode of arrival: ambulatory Limitations: no limitations History of Present Illness: Patient is a 34-year-old female here for vomiting. She states she has a longstanding history of chronic nausea. She is currently being treated with antibiotics for her lip abscess. I performed a lip abscess I&D approximately 2 days ago here in the emergency department. She does feel like this is healing well and swelling has significantly improved. At that visit she had recently had her Bactrim DS doubled and was taking 2 tabs twice daily. She feels like the vomiting started after this. She is not having any abdominal pain. No changes in bowel movements. No fevers. MD elicited complaint: nausea (chronic) and vomiting Onset (ago): day(s) Associated nausea: Yes Associated abdominal pain: No Location of pain: None Severity: mild Exacerbating factors: eating Relieving factors: none Associated symtoms: Reports nausea; Denies chest pain, dysuria, fatigue, headache(s) or malaise Related Data Home Medications ?Medication ?Instructions ?Recorded ?Confirmed montelukast 10 mg tablet 10 mg PO DAILY 02/26/2408/13 ibuprofen 200 mg capsule 200 mg PO Q6H PRN 04/28/24 0 12/18/24 Previous Rx's ?Medication ?Instructions ?Recorded mupirocin 2 % topical ointment 1 applic topical TID 7 days #15 12/18/24 (Centany) grams sulfamethoxazole 800 2 tab PO BID 10 days #40 tab s 12/18/24 mg-trimethoprim 160 mg tablet (Bactrim DS) tramadol 50 mg tablet 50 mg PO Q6H PRN pain #8 tab s 12/19/24 clindamycin HCl 300 mg capsule 300 mg PO Q6H 7 days #2 8 caps 12/21/24 ondansetron 4 mg disintegrating 4 mg PO Q8H PRN nausea and 12/21/24 tablet vomiting #14 tabs Allergies Allergy/AdvReac Type Severity Reaction Status Date / Time No Known Allergies Allergy Verified 12/21/24 13:16 Review of Systems 2 Const: Denies: fever(s), chills, body aches, fatigue or malaise Card: Denies: chest pain Resp: Denies: dyspnea GI: Reports: abdominal pain, nausea and vomiting; Denies: hematemesis or change in bowel habits : Denies: flank pain or dysuria Musc: Denies: neck pain Skin/Breast: Reports: other (lip abscess) Neuro: Denies: headache(s) PFSH ED 2 PFSH: Medical History No pertinent family history Surgical History H/O: hysterectomy Social History Smoking and tobacco/nicotine status: current every day tobacco/nicotine user Physical Exam 2 Const: COMMON NORMALS: no acute distress, average body habitus, patient oriented x3, no limitations, healthy appearing, alert and well nourished HENMT: OTHER: lip abscess appears improved; packing removed and wound was re-packed Eye: COMMON NORMALS: no scleral icterus Neck/C-Spine: COMMON NORMALS: no lymphadenopathy GENERAL: Yes normal visual inspection, No anterior neck swelling and No submandibular swelling Resp: COMMON NORMALS: normal respiratory effort and clear to auscultation bilaterally AUSCULTATION: clear to auscultation bilaterally Cardio: COMMON NORMALS: regular rate and regular rhythm RATE: regular rate RHYTHM: regular rhythm GI: COMMON NORMALS: Normal to inspection, nondistended, normoactive bowel sounds present, Soft to palpation, non-tender, No hepatosplenomegaly present and no masses PALPATION: Yes Soft to palpation and Yes No hepatosplenomegaly present Neuro: COMMON NORMALS: patient oriented x3 SENSORIUM/ORIENTATION: Yes alert Course 2 Vital Signs: Vital signs: Vital Signs Temperature 98.4 F 12/21/24 13:13 Pulse Rate 116 H 12/21/24 13:13 Respiratory Rate 16 12/21/24 13:13 Blood Pressure 144/77 12/21/24 13:13 Pulse Oximetry 97 12/21/24 13:13 Oxygen Delivery Me thod Room Air 12/21/24 13:13 MDM - Nausea/Vomiting/Diarrhea Medical Decision Making Patient clinically appears in no acute distress. She has no abdominal pain. Her blood work overall is unremarkable. Suspect vomiting is from her Bactrim. She does states she has chronic nausea. She states she only has one day left of the Bactrim. Culture grew staph aureus. Sensitivity report reviewed. Will place her on a new antibiotic for the next week until abscess is fully healed. Will provide prescription for antiemetic. Return precautions discussed. Medical Records I reviewed the patient's medical records. Lab Data I reviewed the patient's lab results. 12/21/24 14:00 12/21/24 14:00 Laboratory Results WBC 10.40 10^3/uL (3.29-11.43) 12/21/24 14:00 RBC 5.48 10^6/uL (3.85-5.65) 12/21/24 14:00 Hgb 15.70 g/dL (11.27-16.99) 12/21/24 14:00 Hct 48.1 % (36-47) H 12/21/24 14:00 MCV 87.8 fl (85-98) 12/21/24 14:00 MCH 28.6 pg (27-33) 12/21/24 14:00 MCHC 32.6 g/dL (30-55) 12/21/24 14:00 RDW 12.5 % (12.1-15.1) 12/21/24 14:00 Plt Count 313 10^3/cmm (157-399) 12/21/24 14:00 MPV 9.3 fL (7.4-10.4) 12/21/24 14:00 Neut % (Auto) 71.9 % 12/21/24 14:00 Lymph % (Auto) 18.0 % 12/21/24 14:00 [place] % (Auto) 7.0 % 12/21/24 14:00 Eos % (Auto) 2.0 % 12/21/24 14:00 Baso % (Auto) 0.5 % 12/21/24 14:00 Neut # (Auto) 7.48 10^3/uL (1.8-7.7) 12/21/24 14:00 Lymph # (Auto) 1.9 10^3/uL (0.8-4.8) 12/21/24 14:00 [place] # (Auto) 0.7 10^3/uL (0.2-0.9) 12/21/24 14:00 Eos # (Auto) 0.2 10^3/uL (0.0-0.8) 12/21/24 14:00 Baso # (Auto) 0.1 10^3/uL (0.0-0.1) 12/21/24 14:00 Nucleated RBC % (auto) 0 % 12/21/24 14:00 Nucleated RBCs # 0.0 /100WBC 12/21/24 14:00 Sodium 137 mmol/L (136-145) 12/21/24 14:00 Potassium 4.3 mmol/L (3.5-5.1) 12/21/24 14:00 Chloride 99 mmol/L (98-107) 12/21/24 14:00 Carbon Dioxide 20 mmol/L (22-29) L 12/21/24 14:00 Anion Gap 22.3 (5-19) H 12/21/24 14:00 BUN 14 mg/dL (6-20) 12/21/24 14:00 Creatinine 0.7 mg/dL (0.5-0.9) 12/21/24 14:00 GFR Calculation 95.2 mL/min (90-130) 12/21/24 14:00 Glucose 78 mg/dL (65-115) 12/21/24 14:00 Calculated Osmolality 283 mOsm/kg (285-295) L 12/21/24 14:00 Calcium 9.3 mg/dL (8.5-10.5) 12/21/24 14:00 Total Bilirubin 0.2 mg/dL (0.15-1.2) 12/21/24 14:00 AST 16 U/L (0-32) 12/21/24 14:00 ALT 17 U/L (0-33) 12/21/24 14:00 Alkaline Phosphatase 93 U/L (35-105) 12/21/24 14:00 Total Protein 7.8 g/dL (6.6-8.7) 12/21/24 14:00 Albumin 4.4 g/dL (3.5-5.2) 12/21/24 14:00 Globulin 3.4 g/dL (1.3-4.6) 12/21/24 14:00 Lipase 21 U/L (13-60) 12/21/24 14:00 HCG, Qual Negative (Negative) 12/21/24 14:00 Urine Color Yellow (Yellow) 12/21/24 13:54 Urine Appearance Clear (CLEAR) 12/21/24 13:54 Urine pH 6.0 (5-7) 12/21/24 13:54 Ur Specific [place] 1.028 (1.005-1.030) 12/21/24 13:54 Urine Protein 2+ (Negative) A 12/21/24 13:54 Urine Glucose (UA) Negative (Normal) 12/21/24 13:54 Urine Ketones 4+ (Negative) 12/21/24 13:54 Urine Blood 1+ (Negative) A 12/21/24 13:54 Urine Nitrate Negative (Negative) 12/21/24 13:54 Urine Bilirubin Negative (Negative) 12/21/24 13:54 Urine Urobilinogen 1.0 mg/dL (Negative) 12/21/24 13:54 Ur Leukocyte Esterase Negative (Negative) 12/21/24 13:54 Urine RBC 6-10 /hpf (0-2) 12/21/24 13:54 Urine WBC 0-5 /hpf (0-5) 12/21/24 13:54 Ur Squamous Epith Cells 0-5 /hpf (0-5) 12/21/24 13:54 Amorphous Sediment Not Reportable 12/21/24 13:54 Urine Bacteria None seen /hpf (NONE) 12/21/24 13:54 Hyaline Casts 1.65 /lpf 12/21/24 13:54 No radiology studies performed this visit Discharge Plan Discharge Patient Disposition: Home Clinical Impression: Lip abscess Vomiting Qualifiers: Vomiting type: unspecified Nausea presence: with nausea Qualified Code(s): R 11.2 - Nausea with vomiting, unspecified Condition: Stable Prescriptions: New clindamycin HCl 300 mg capsule 300 mg PO Q6H 7 Days Qty: 28 0RF ondansetron 4 mg tablet,disintegrating 4 mg PO Q8H PRN (Reason: nausea and vomiting) Qty: 14 0RF No Action sulfamethoxazole-trimethoprim [Bactrim DS] 800-160 mg tablet 2 tab PO BID 10 Days Qty: 40 0RF mupirocin [Centany] 2 % ointment 1 applic topical TID 7 Days Qty: 15 0RF ibuprofen 200 mg capsule 200 mg PO Q6H PRN montelukast 10 mg tablet 10 mg PO DAILY tramadol 50 mg tablet 50 mg PO Q6H PRN (Reason: pain) Qty: 8 0RF Discharge Orders: Discharge ED (Routine); Ordered 12/21/24 Ordered By: Beth Horta Referrals: Floresita Velazquez DO [Primary Care Provider, HEAT TREAT SUPERVISOR] Activity Restrictions/Additional Instructions: Please monitor your abscess for worsening symptoms such as worsening redness, swelling, increased drainage, red streaking, or fevers. You will need follow up in 72 hours for wound re-evaluation/re-packing if needed. Try taking the zofran approximately 30 mins before your antibiotic to see if his helps cut down on the nausea/vomiting. Print Language: Tamazight Coding Level of Care Code ED Digital Account Director for Berenice Strauss
[2024-12-21 16:09] LABS: Bilirubin Urine Negative (Negative); Blood Urine 1+ (Negative); Glucose Urine UA Negative (Normal); Ketones Urine 4+ (Negative); Leukocyte Esterase Urine Negative (Negative); Nitrate Urine Negative (Negative); Protein Urine 2+ (Negative); Specific Gravity, Urine 1.028 (1.005-1.030); Urine Appearance Clear (CLEAR); Urine Color Yellow (Yellow)
[2024-12-21 16:11] LABS: Add Urine Microscopic? YES; Bacteria Urine None Seen /hpf; Hyaline Casts Urine 1.65 /lpf; Squamous Epithelial Cell Urine 0-5 /hpf (0-5); WBC Urine 0-5 /hpf (0-5)
[2024-12-21 16:22] LABS: Add Urine Culture? No
[2024-12-21 16:37] VITALS: BP 115/70; PULSE 100; O2SAT 100
== END 2024-12-21 16:41 | disposition home or self-care (01) ==
PROVIDERS: Emergency Provider Physician Assistant; PCP Family Medicine
DX: K13.0 Diseases of lips (principal); R11.2 Nausea with vomiting, unspecified; Z72.0 Tobacco use
CPT/HCPCS: 36415; 80053; 81001; 83690; 84703; 85025; 99283

== ENCOUNTER → 2025-04-18 14:03 | Outpatient (BNVA) | payer MEDICAID, SELFPAY | PROVIDERS: PCP Family Medicine | DX: R50.9 Fever, unspecified (principal); R53.83 Other fatigue; J06.9 Acute upper respiratory infection, unspecified | CPT/HCPCS: 86308; 87071; 87400; 87426; 87880 ==

== ENCOUNTER → 2025-05-17 08:39 | Outpatient (BNVA) | payer MEDICAID, SELFPAY | PROVIDERS: PCP Family Medicine; Visit Provider Physician Assistant | DX: M67.431 Ganglion, right wrist (principal) | CPT/HCPCS: 73110 ==

== ENCOUNTER 2025-06-13 07:57 | Day surgery (SDC) | payer MEDICAID, SELFPAY ==
[2025-06-13] VITALS (7 sets, daily range): BP systolic 96–120; BP diastolic 57–86; PULSE 68–83; RESP 12–18; TEMP 36.3–36.4; O2SAT 96–99; BMI 27.4
[2025-06-13] MEDS: acetaminophen 1,000 MG/100 ML PIGGYBACK 400 MG IV (08:18)
--- NOTE | 2025-06-13 08:19 | W.PM.OPSUD ---
Surgery/Procedure H&P Update DATE OF PROCEDURE: June 13, 2025 DATE H&P PERFORMED: 05/17/25 H&P UPDATE INFORMATION: I have reviewed H&P completed within last 30 days, I have examined patient prior to procedure and No changes to prior documentation PREOP DIAGNOSIS: Right dorsal wrist ganglion cyst PRIMARY INDICATION FOR PROCEDURE: Right dorsal wrist ganglion cyst PLANNED PROCEDURE: Operation Date: 06/13/25 09:55 Proposed Procedures p Right dorsal wrist ganglion cyst excision(Right) - Han Levy DO
--- NOTE | 2025-06-13 08:34 | ANES.PREANE2 ---
Pre-Anesthetic Assessment Height/Weight: Height 1.57 m Weight 68.039 kg Temp Pulse Resp BP Pulse Ox O2 Del Method 97.3 F L 83 18 120/86 97 Room Air 06/13/25 08:10 06/13/25 08:10 06/13/25 08:10 06/13/25 08:10 06/13/25 08:10 06/13/25 08:10 Preop Diagnosis: Right dorsal wrist ganglion cyst Operation Date: 06/13/25 09:55 Proposed Procedures p Right dorsal wrist ganglion cyst excision(Right) - Han Levy DO Familial anesthetic complications: None Was Beta Iveth taken within 24 hours: N/A Was Clonidine taken within 24 hours: N/A Last intake: Intake Last Liquid Date 06/12/25 Last Liquid Time 20:00 Last Solid Date 06/12/25 Last Solid Time 18:00 Social No alcohol and No tobacco Exam alert, oriented x 3, clear to auscultation bilaterally and regular rate & rhythm Airway Mallampati: Class II Dentition: full Anesthetic Plan ASA status: 1 Anesthesia: MAC Risk of > 500 ml blood loss (7ml/kg in children): No Medications/Allergies Home Medications ?Medication ?Instructions ?Recorded ?Confirmed ?Last Taken ?Type montelukast 10 mg tablet 10 mg PO DAILY 02/26/24 06/12/25 06/11/25 History (Singulair) amoxicillin 875 mg-potassium 1 tab PO BID 10 days #20 tabs 06/04/25 06/12/25 06/11/25 07:00 Rx clavulanate 125 mg tablet Allergies Allergy/AdvReac Type Severity Reaction Status Date / Time No Known Allergies Allergy Verified 06/13/25 08:11 Current Medications Generic Name Dose Route Start Last Admin Trade Name Freq PRN Reason Stop Dose Admin Sodium Chloride 1,000 mls @ 30 mls/hr 06/13/25 08:15 06/13/25 08:18 Sodium Chloride 0.9% IV 06/14/25 08:14 30 mls/hr .Q24H NICA Administration PFSH Anesthesia Medical History (Updated 06/04/25 @ 11:47 by Nicole Edmondson DO) No pertinent family history Surgical History H/O: hysterectomy Social History Smoking and tobacco/nicotine status: current every day tobacco/nicotine user
[2025-06-13] MEDS: ceFAZolin 2,000 MG in sodium chloride 0.9% (plus) 50 ML 100 MG IV (09:14)
[2025-06-13] MEDS: lidocaine-epi 1% 20 mL INJ 5 ML INJECTION (09:40)
[2025-06-13] MEDS: sodium bicarbonate 4.2% 0.5 mEq/mL SDV 5mL 1 MEQ XX (09:41)
[2025-06-13] MEDS: ROPivacaine 0.5% SDV 30 mL 25 MG INJECTION (09:41)
--- NOTE | 2025-06-13 09:56 | W.PM.BPON ---
Date of Procedure: 06/13/2025 Surgeon: Han Levy DO Electrical Technician Instructor(s): None Procedure(s) performed: Right dorsal wrist ganglion cyst excision (2 cm x 1 cm x 1 cm Findings of the procedure(s): Underwent procedure as planned without issues or complications taken recovery in stable condition volar splint applied Estimated blood loss: 5 mL Specimen(s) removed: Right dorsal wrist ganglion cyst excised and sent for specimen Post-operative diagnosis: Right dorsal wrist ganglion cyst
--- NOTE | 2025-06-13 09:57 | P.OP_ITS ---
Operative Report Date of procedure: June 13, 2025 Surgeon: Han Levy DO Procedure: Preoperative diagnosis: Right dorsal wrist ganglion cyst Postoperative diagnosis Same Procedure Right?dorsal?wrist ganglion?cyst?excision (2 cm x 1 cm x 1 cm Specimens removed/disposition: Right?dorsal?wrist ganglion?cyst?excised and sent for pathology Surgeon: Han Levy DO Estimated blood loss: 5mL Tourniquet time 15 minutes IV fluids: See anesthesia record Complications: None Findings: See operative report narrative Condition: stable Disposition: same day Brief History: Patient's been worked up in the outpatient setting and findings consistent with preoperative diagnosis.? Patient has a right?dorsal?wrist ganglion?cyst.? Patient has attempted conservative treatment and this has become significantly painful.? We talked about treatment options as far as nonoperative and operative intervention.? At this point time patient like a more permanent solution in the lowest chance of recurrence as well as improvement in her pain over the cyst, and as result through shared decision making we agreed to proceed with a right?dorsal?wrist ganglion?cyst?excision.? Patient understands risk benefits complication alternatives surgical nonsurgical treatment options.? Understanding risk of surgery patient agrees to proceed.? All questions answered.? Consent obtained in the preoperative holding area. Procedure: Patient seen evaluate in the preoperative holding area.? Consent was signed and reviewed with patient.? All questions were answered at that time.? Correct extremity was then marked.? Once seen evaluated by anesthesia patient was then brought back to the operative suite.? Patient was then placed in supine position all bony prominences well-padded patient was properly secured to the bed.? An armboard was then applied for the right upper extremity.? A nonsterile tourniquet was applied to the right upper extremity arm.? Patient then underwent anesthesia per the anesthesia department.? Once appropriately anesthetized the right upper extremity was then prepped and draped in standard orthopedic fashion.? Final timeout performed.? Patient received appropriate preoperative antibiotics. Under sterile aseptic technique I began with local anesthetic for my preplanned surgical site.? Then I utilized an Esmarch tourniquet to exsanguinate the right upper extremity to 250 mmHg Patient had a large soft mobile ganglion?cyst?which a incision was then centered longitudinally directly over the?cyst?over the?dorsal?aspect of the right wrist.? sharp scalpel incision was made through skin and subcutaneous tissue.? I then switched to dissection scissors and spread longitudinally to identify branches of the superficial radial nerve.? These were protected throughout the case.? I immediately encountered the ganglion?cyst?which was just distal to the extensor retinaculum and between the third and fourth?dorsal?compartments.? I then protected the tendons and identified the ganglion?cyst?subsequently d issected circumferentially all the way to the base which was connected to the?dorsal?capsule.? This was then transected at the base with bipolar electrocautery. I utilized bipolar electrocautery to to seal off the?dorsal?capsule and prevent any further?cyst?recurrence.??Cyst?was then sent for pathology cyst measured 2 cm x 1 cm x 1 cm prior to its excision.? I then thoroughly irrigated the wound bed tourniquet was deflated.? Hemostasis was satisfactory with bipolar electrocautery.? I then closed the incision in layered fashion with 3-0 Vicryl suture subcutaneously and running Monocryl suture with Dermabond and Steri-Strips for skin. 4 x 4's ABD soft roll and a volar splint was applied.? Patient was then awakened from anesthesia and taken back in stable condition. Disposition: Patient taken back in stable condition recovering well.? Patient will receive appropriate discharge instructions as well as pain medication postoperatively.? Patient placed in a volar splint.? We will follow-up with in the orthopedic office in 2 weeks.? Patient understands of any questions or concerns and contact the office.
--- NOTE | 2025-06-13 11:05 | ANE.PACU2 ---
Inpatient post-anesthesia follow up: Airway intact: Yes Vital signs: Temperature 97.3 F Pulse Rate 79 Respiratory Rate 18 Blood Pressure 98/73 Pulse Oximetry 98 Oxygen Delivery Me thod Room Air Oxygen Flow Rate Fraction of Inspir ed Oxygen Hydration adequate: Yes Nausea and vomiting: No Pain level: 1 Mental status: Baseline
== END 2025-06-13 11:05 | disposition home or self-care (01) ==
PROVIDERS: PCP Family Medicine; Visit Provider Student in an Organized Health Care Education/Training Program
PROC: (CPT 26160; principal; 2025-06-13 09:55)
DX: M67.431 Ganglion, right wrist (principal); F17.200 Nicotine dependence, unspecified, uncomplicated
CPT/HCPCS: 25111; 88304; J0131; J0690; J1885; J2250; J2704; J2795; J3010; J7030; J9999

== ENCOUNTER 2025-07-10 10:05 | Outpatient (CLI) | payer MEDICAID, SELFPAY ==
--- NOTE | 2025-07-10 10:12 | MR_ITS ---
WS: [id number] MRI HEAD WITH CONTRAST WITH ATTENTION TO THE INTERNAL AUDITORY CANALS TECHNIQUE: Sagittal T1, T2 axial, T2 axial flair, axial susceptibility weighted imaging, axial diffusion weighted images, and coronal T2 images were obtained. Pre and post T1 axial and post T1 coronal images. ADC and FSPGR images. Post gadolinium images with attention to the internal auditory canals. Axial fiesta imaging. CLINICAL INFORMATION: DIZZINESS COMPARISON: None. FINDINGS: No hemosiderin on the susceptibly weighted images. Proximal 7th and 8th cranial nerves are normal in appearance. No evidence of enhancing IAC or CP angle mass. Normal trigeminal nerve root entry zones. No abnormal gadolinium enhancement. Normal dural venous sinuses. Normal optic chiasm and pituitary infundibulum. No evidence of restricted diffusion to suggest acute ischemia. Mild patchy supratentorial white matter changes nonspecific in a patient this age but can be seen with hypertension, diabetes, smoking, and migraine headaches. No significant parenchymal volume loss. Normal vascular flow voids at the skull base. No extra-axial fluid collections. Mucosal thickening in the ethmoid air cells and RIGHT maxillary sinus. Mastoid air cells are well aerated. Normal posterior nasopharynx. MR/MR iac's wo/w con* [id number] IMPRESSION: 1. No evidence of restricted diffusion to suggest acute ischemia. 2. Mild supratentorial white matter changes nonspecific in a patient this age but can be seen with with hypertension, diabetes, smoking, and migraine headach es 3. Proximal 7th and eighth cranial nerves are normal in appearance. No evidenc e of enhancing IAC or CP angle mass. Normal trigeminal nerve root entry zones. 4. Mastoid air cells are well aerated. Mucosal thickening in the ethmoid air c ells and RIGHT maxillary sinus. 5. No other acute findings.
[2025-07-10] MEDS: gadobenate dimeglumine 20 mL vial IV (11:07)
== END 2025-07-10 10:06 | disposition home or self-care (01) ==
LOC: RAD 10:06
PROVIDERS: PCP Family Medicine; Visit Provider Otolaryngology
DX: R42 Dizziness and giddiness (principal); J32.2 Chronic ethmoidal sinusitis; J32.0 Chronic maxillary sinusitis
CPT/HCPCS: 70553